=== PATIENT | female | born 1955 | race Two or more races ===

== ENCOUNTER 2022-09-15 10:25 | Emergency (ER) | payer OTHER ==
[~2022-09-15] VITALS: Ht 172.7 cm; Wt 93.0 kg
[2022-09-15] MEDS ORDERED: DULOXETINE HCL60 MG PO (10:51)
[2022-09-15] MEDS ORDERED: SYNTHROID50 MCG PO (10:52)
[2022-09-15] MEDS ORDERED: METOLAZONE5 MG PO (10:52)
[2022-09-15] MEDS ORDERED: METFORMIN HCL500 M4 PO (10:52)
[2022-09-15] MEDS ORDERED: ASPIRIN81 MG PO (10:53)
[2022-09-15] MEDS ORDERED: SINGULAIR10 MG PO (10:54)
[2022-09-15] MEDS ORDERED: PROTONIX40 MG PO (10:55)
[2022-09-15] MEDS ORDERED: CHILDREN'S CETI10 MG PO (10:55)
== END 2022-09-15 12:13 | disposition home or self-care (01) ==
LOC: ER 10:25
DX: H00.012 Hordeolum externum right lower eyelid (principal)

== ENCOUNTER → 2024-01-11 | Emergency (ER) | payer OTHER ==
[~2024-01-11] VITALS: Ht 175.3 cm; Wt 92.1 kg
[~2024-01-11] MED LIST: ASPIRIN81 MG PO; CHILDREN'S CETI10 MG PO; DULOXETINE HCL60 MG PO; METFORMIN HCL500 M4 PO; METOLAZONE5 MG PO; PROTONIX40 MG PO; SINGULAIR10 MG PO; SYNTHROID50 MCG PO
== END | disposition home or self-care (01) ==
LOC: ER 09:50
DX: H01.009 Unspecified blepharitis unspecified eye, unspecified eyelid (principal)